=== PATIENT | male | born 1995 | race Caucasian/White ===

== ENCOUNTER 2016-08-13 20:57 | Emergency (ER) | payer BC ==
[2016-08-13 21:06] VITALS: RESP 18
[2016-08-13] MEDS ORDERED: KETOROLAC 60 MG/2 ML VIAL IM STA (21:27)
[2016-08-13 21:30] VITALS: PULSE 76; TEMP 97
[2016-08-13] MEDS ORDERED: KETOROLAC 30 MG/ML 1 ML VIAL IVP STA (21:42)
--- NOTE | 2016-08-13 21:43 | XR ---
EXAMINATION TYPE: XR chest 2V DATE OF EXAM: 08/13/2016 9:35 PM COMPARISON: 11/19/2010 HISTORY: Chest pain TECHNIQUE: Frontal and lateral views of the chest are obtained. FINDINGS: Heart and mediastinum are normal. Lungs are clear. Diaphragm is normal. Bony thorax and so ft tissues appear normal. IMPRESSION: Normal chest. No change.
--- NOTE | 2016-08-13 21:43 | ED ---
General Adult HPI - General Chief complaint: Chest Pain Stated complaint: chest pain Time Seen by Provider: 08/13/16 21:00 Source: patient, RN notes reviewed Mode of arrival: wheelchair Limitations: no limitations - History of Present Illness Initial comments: This is a 21-year-old male who presents emergency Department with anterior chest pain which started earlier today. Patient states it only hurts if he takes a deep breath. Patient states while he lives here it doesn't hurt at all. When he takes a deep breath in front of me so that does hurt redness center of his chest and is sharp pain but is not severe. Patient denies any difficulty breathing or shortness of breath per patient denies any diaphoresis per patient denies any nausea. Patient denies any radiation of the pain. Patient denies any smoking patient denies diabetes hypertension high". Patient denies any family history of heart disease. Patient states he has not been sick lately denies any fever chills or cough. Patient denies any heavy lifting or moving or new exercises lately. Patient states he has had no injury or trauma to the area. Patient denies any lightheadedness or dizziness patient denies any palpitations. Patient denies any headache patient denies numbness weakness - Related Data Home Medications Medication Instructions Recorded Confirmed No Known Home Medications [No 08/13/16 08/13/16 Known Home Medications] Allergies Allergy/AdvReac Type Severity Reaction Status Date / Time hydromorphone HCl AdvReac Nausea & Verified 08/13/16 21:03 [From Dilaudid] Vomiting Review of Systems ROS Statement: Those systems with pertinent positive or pertinent negative responses have been documented in the HPI. ROS Other: All systems not noted in ROS Statement are negative. 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 Patient is nontoxic and well- hydrated and is in no acute distress. ENT: Neck is soft and supple. No significant lymphadenopathy is noted. Oropharynx is clear. Moist mucous membranes. Neck has full range of motion without eliciting any pain. EYES: The sclera were anicteric and conjunctiva were pink and moist. Extraocular movements were intact and pupils were equal round and reactive to light. Eyelids were unremarkable. PULMONARY: Unlabored respirations. Good breath sounds bilaterally. No audible rales rhonchi or wheezing was noted. CARDIOVASCULAR: There is a regular rate and rhythm without any murmurs gallops or rubs. ABDOMEN: Soft and nontender with normal bowel sounds. SKIN: Skin is clear with no lesions or rashes and otherwise unremarkable. NEUROLOGIC: Patient is alert and oriented x3. Cranial nerves II through XII are grossly intact. Motor and sensory are also intact. Normal speech, volume and content. Symmetrical smile. MUSCULOSKELETAL: Normal extremities with adequate strength and full range of motion. No lower extremity swelling or edema. No calf tenderness. LYMPHATICS: No significant lymphadenopathy is noted PSYCHIATRIC: Normal psychiatric evaluation. Limitations: no limitations Course Vital Signs 08/13/16 08/13/16 08/13/16 21:04 21:06 21:25 Temperature 98.3 F 97 F L Pulse Rate 80 76 Pulse Rate [ 72 [employer] ] Respiratory 18 20 18 Rate Blood Pressure 127/76 125/76 O2 Sat by Pulse 99 98 Oximetry Medical Decision Making - Medical Decision Making EKG shows a normal sinus rhythm at 64 bpm. On a 34 QRS is 104 QT interval 374 QTC is 385. Patient's EKG shows no ST segment elevation or depression. There are no T-wave abnormalities noted. Chest x-ray shows no acute abnormality. I will begin after the patient received Toradol he stated the pain was completely resolved. He could still make it come and go if he took a huge breath but he states that there was very minimal pain at this point. Disposition Clinical Impression: Chest wall pain Disposition: HOME SELF-CARE Condition: Good Instructions: Chest Wall Pain (ED) Additional Instructions: Patient should take Motrin 600 mg by mouth every 6 hours when necessary for pain Patient should return to emergency department for any new or worsening symptoms. Referrals: None,Stated [Primary Care Provider] - 1-2 days Time of Disposition: 22:31
[2016-08-13 22:49] VITALS: BP 118/75
== END 2016-08-13 22:48 | disposition home or self-care (01) ==
LOC: EC 20:57
DX: R07.89 Other chest pain (principal); Z88.5 Allergy status to narcotic agent
CPT/HCPCS: 96372; 99285; 93005; 71020; J1885

== ENCOUNTER 2019-05-16 10:26 | Day surgery (SDC) | payer BC ==
[2019-05-14 13:17] VITALS: BMI 21.7
--- NOTE | 2019-05-15 18:35 | P.GSHP ---
History of Present Illness H&P Date: 05/16/19 CHIEF COMPLAINT: Change in bowel habits HISTORY OF PRESENT ILLNESS: The patient is a 24-year-old male who presents with change in bowel habits. Lower endoscopy was offered for further evaluation and management. PAST MEDICAL HISTORY: Please see list. PAST SURGICAL HISTORY: Please see list. MEDICATIONS: Please see list. ALLERGIES: Please see list. SOCIAL HISTORY: No illicit drug use FAMILY HISTORY: Colon cancer and gastrointestinal tumors in sister at age of 15 including mother age 40 and uncles under age 30 REVIEW OF ORGAN SYSTEMS: CONSTITUTIONAL: No reports of fevers or chills. PHYSICAL EXAM: VITAL SIGNS: Stable GENERAL: Well-developed pleasant in no acute distress. HEENT: No scleral icterus. Extraocular movements grossly intact. Moist buccal mucosa. NECK: Supple without lymphadenopathy. CHEST: Unlabored respirations. Equal bilateral excursions. CARDIOVASCULAR: Regular rate and rhythm. Distal 2+ pulses. ABDOMEN: Soft, nontender, nondistended. MUSCULOSKELETAL: No clubbing, cyanosis, or edema. ASSESSMENT: 1. Change in bowel habits. 2. Family history of early familial gastrointestinal tumors and cancers under age 30 PLAN: 1. Recommend proceeding with a lower endoscopy Past Medical History Additional Past Medical History / Comment(s): hx kowasaki disease, leaky heart valve, blood in stool, History of Any Multi-Drug Resistant Organisms: None Reported Past Surgical History: Orthopedic Surgery Additional Past Surgical History / Comment(s): lymph nodes reoved from both sides of neck, surgery on left femur x 2( belia inserted and later removed) Past Anesthesia/Blood Transfusion Reactions: No Reported Reaction Smoking Status: Never smoker - Past Family History Mother Family Medical History: No Reported History Medications and Allergies Home Medications Medication Instructions Recorded Confirmed Type No Known Home Medications 08/13/16 05/14/19 History Allergies Allergy/AdvReac Type Severity Reaction Status Date / Time hydromorphone HCl AdvReac Nausea & Verified 05/14/19 13:10 [From Dilaudid] Vomiting
[~2019-05-16 10:26] MED LIST: LACTATED RINGERS 1,000 ML IV SCH; LIDOCAINE 1% 20 ML VIAL (10MG/ML) FOR IV START INTRADERMA PRN
[2019-05-16 10:48] VITALS: RESP 16; TEMP 98.6
[2019-05-16] MEDS ORDERED: PROPOFOL 10 MG/ML 20 ML VIAL IV ONE (11:35)
--- NOTE | 2019-05-16 12:08 | P.PCN ---
Date of Procedure: 05/16/19 Description of Procedure: PREOPERATIVE DIAGNOSIS: Rectal bleeding Family history of colon cancer, young age, very high risk POSTOPERATIVE DIAGNOSIS: Rectal bleeding Family history of colon cancer, young age, very high risk Internal hemorrhoids, grade 2 External hemorrhoids, grade 2 OPERATION: Colonoscopy to the ileocecal valve and appendiceal orifice. SURGEON: Fide Kim MD. ANESTHESIA: MAC. INDICATIONS: The patient is a 24-year-old male who presents with rectal bleeding including strong family history of colon cancer in siblings including parents at young age. Benefits and risks were described and informed consent was obtained. DESCRIPTION OF PROCEDURE: The patient had undergone Suprep. He had been brought into the operating room and laid in the left lateral decubitus position. After adequate intravenous sedation, the rectum was examined with 2% lidocaine jelly. External hemorrhoids were encountered. The rectal tone was within normal limits. No lesions were palpated in the rectal vault. An Olympus colonoscope was advanced until the ileocecal valve and appendiceal orifice were clearly viewed. The prep was excellent with clear visualization of the mucosal folds. The scope was removed with visualization of each mucosal fold. No scattered diverticulosis was encountered. No colonic polyps were found. No evidence of focal colitis was found. Retroflexion of the scope demonstrated grade 2 internal hemorrhoids without active bleeding or inflammation. The colon was desufflated. The patient had tolerated the procedure well. Withdrawal time was over 6 minutes. FINDINGS: Aronchick preparation quality scale 1 (1-5) Internal hemorrhoids, grade 2 External prolapsed hemorrhoids, grade 2 No arteriovenous malformations. No adenomatous polyps. No focal colitis. RECOMMENDATIONS: Lower endoscopy as needed Plan - Discharge Summary New Discharge Prescriptions: No Action No Known Home Medications Discharge Medication List No Known Home Medications 08/13/16 [History]
[2019-05-16 12:32] VITALS: BP 115/66; PULSE 68
== END 2019-05-16 13:04 | disposition home or self-care (01) ==
LOC: ORWHC2ENDO 10:26
PROVIDERS: ATTEND Surgery Plastic and Reconstructive Surgery
DX: K64.1 Second degree hemorrhoids (principal); K64.4 Residual hemorrhoidal skin tags; I38 Endocarditis, valve unspecified; Z80.0 Family history of malignant neoplasm of digestive organs; Z83.79 Family history of other diseases of the digestive system; Z98.890 Other specified postprocedural states; Z88.5 Allergy status to narcotic agent; Z87.39 Personal history of other diseases of the musculoskeletal system and connective tissue
CPT/HCPCS: 45378; J2704

== ENCOUNTER → 2020-08-31 | Outpatient (CLI) | payer BC | END | disposition home or self-care (01) | LOC: LABWHC1 11:30 | PROVIDERS: ATTEND Otolaryngology | DX: J30.89 Other allergic rhinitis (principal) | CPT/HCPCS: 36415 ==